=== PATIENT | male | born 1985 ===

== ENCOUNTER 2019-04-10 11:41 | Emergency (ER) | payer SELFPAY ==
[2019-04-11] MEDS ORDERED: NA CHLORIDE 0.9% 1,000 ML ONE (00:27)
[2019-04-11 00:30] LABS: Absolute Lymphocytes (CBC) 2.9 K/uL (0.7-4.9); Basophils % 0.9 % (0-1.3); Hematocrit 44.9 % (39.6-49.0); Lymphocytes % 34.7 % (15.3-44.8); MPV 8.5 fL (7.6-11.3); RBC Red Blood Cell Count 5.11 M/uL (4.33-5.43)
[2019-04-11 01:01] LABS: Urine Blood NEGATIVE (NEG); Urine Glucose NEGATIVE (NEG); Urine Protein NEGATIVE (NEG); Urine Specific Gravity 1.015 (1.005-1.030)
[2019-04-11 01:02] LABS: Urine Bacteria <20 /HPF (NONE SEEN); Urine Culture Reflex Order NOT NEEDED; Urine RBC NONE SEEN /HPF (NONE SEEN)
[2019-04-11 01:07] LABS: Barbiturates NEGATIVE (NEGATIVE); Benzodiazepines NEGATIVE (NEGATIVE); Cocaine NEGATIVE (NEGATIVE); METHAMPHETAM NEGATIVE (NEGATIVE); Methadone NEGATIVE (NEGATIVE); Opiates NEGATIVE (NEGATIVE); Phencyclidine NEGATIVE (NEGATIVE); THC Cannibis NEGATIVE (NEGATIVE)
[2019-04-11 01:13] LABS: ALT/SGPT 35 U/L (12-78); AST/SGOT 18 U/L (15-37); Albumin 3.8 g/dL (3.4-5.0); Alkaline Phosphatase 133 U/L (45-117); BUN Blood Urea Nitrogen 13 mg/dL (7-18); Bicarbonate 28 mmol/L (21-32); Bilirubin Direct 0.1 mg/dL (0-0.2); Bilirubin Total 0.5 mg/dL (0.2-1.0); Creatine Phosphokinase 90 U/L (39-308); Glucose Level 112 mg/dL (74-106); Potassium 3.6 mmol/L (3.5-5.1); Protein, Total 7.8 g/dL (6.4-8.2); Sodium Level 139 mmol/L (136-145); Troponin (Emerg Dept Use Only) < 0.02 ng/mL (0.0-0.045)
--- NOTE | 2019-04-11 02:42 | ER ---
Nurse's Notes [facility] Name: Dillon Wagoner Age: 34 yrs Sex: Male : 1985 Arrival Date: 04/10/2019 Time: 23:44 Bed 18 Private MD: Diagnosis: Weakness Presentation: 04/10 23:54 Presenting complaint: Patient states: Starting yesterday I began feeling weird. jb4 Jittery, shaky, and weak all over and had shortness of breath. It all comes and goes. Transition of care: patient was not received from another setting of care. Onset of symptoms was April 09, 2019. Risk Assessment: Do you want to hurt yourself or someone else? Patient reports no desire to harm self or others. Initial Sepsis Screen: Does the patient meet any 2 criteria? No. Patient's initial sepsis screen is negative. Does the patient have a suspected source of infection? No. Patient's initial sepsis screen is negative. Care prior to arrival: None. 23:54 Method Of Arrival: Ambulatory jb4 23:54 Acuity: KISHAN 3 jb4 Historical: - Allergies: 23:56 PENICILLINS; jb4 23:56 Hydrocodone-Acetaminophen; jb4 23:56 Iodine; jb4 - Home Meds: 23:56 None [Active]; jb4 - PMHx: 23:56 Seizures; jb4 - PSHx: 23:56 back; jb4 - Immunization history:: Adult Immunizations unknown. - Social history:: Smoking status: Patient uses tobacco products, smokes one pack cigarettes per day. Patient uses alcohol, occasionally. Patient/guardian denies using street drugs. - Ebola Screening: : No symptoms or risks identified at this time. Screenin/30 00:06 Abuse screen: Denies threats or abuse. Nutritional screening: No deficits noted. jb4 Tuberculosis screening: No symptoms or risk factors identified. Fall Risk None identified. Assessment: 04/10 23:58 General: Appears in no apparent distress. uncomfortable, Behavior is cooperative, jb4 anxious. Pain: Denies pain. Neuro: Level of Consciousness is awake, alert, obeys commands, Oriented to person, place, time, situation. Cardiovascular: Respiratory: Airway is patent Respiratory effort is even, unlabored, Respiratory pattern is regular, symmetrical. GI: Abdomen is flat, non-distended, Reports nausea. : No deficits noted. No signs and/or symptoms were reported regarding the genitourinary system. EENT: No deficits noted. No signs and/or symptoms were reported regarding the EENT system. Derm: Skin is intact, Skin is pink, warm \T\ dry. Musculoskeletal: Circulation, motion, and sensation intact. Range of motion: intact in all extremities. 04/11 01:09 Reassessment: Patient appears in no apparent distress at this time. Patient and/or jb4 family updated on plan of care and expected duration. Pain level reassessed. Patient is alert, oriented x 3, equal unlabored respirations, skin warm/dry/pink. 02:28 Reassessment: Patient appears in no apparent distress at this time. Patient and/or jb4 family updated on plan of care and expected duration. Pain level reassessed. Patient is alert, oriented x 3, equal unlabored respirations, skin warm/dry/pink. Pt verbalized understanding of d/c and follow up instructions. ambulated out of ED with steady gait. Vital Signs: 04/10 23:56 BP 144 / 88; Pulse 83; Resp 16; Temp 98.8(O); Pulse Ox 100% on R/A; Weight 90.72 kg jb4 (R); Height 5 ft. 5 in. (165.10 cm) (R); Pain 0/10; 04/11 01:00 BP 132 / 87; Pulse 66; Resp 16; Pulse Ox 100% on R/A; jb4 02:15 BP 114 / 85; Pulse 52; Resp 16; Pulse Ox 98% on R/A; 4 04/10 23:56 Body Mass Index 33.28 (90.72 kg, 165.10 cm) [facility] ED Course: 04/10 23:44 Patient arrived in ED. cl3 23:46 Santiago Lomas, ROB is Primary Nurse. jb4 23:55 Edison Khan MD is Attending Physician. gs 23:55 Triage completed. jb4 23:56 Arm band placed on right wrist. 4 04/11 00:06 Patient has correct armband on for positive identification. Bed in low position. Call [facility] light in reach. Side rails up X 1. Pulse ox on. NIBP on. 00:20 Initial lab(s) drawn, by me, sent to lab. Inserted saline lock: 20 gauge in right jb4 antecubital area, using aseptic technique. Blood collected. 02:29 No provider procedures requiring assistance completed. IV discontinued, intact, jb4 bleeding controlled, No redness/swelling at site. Pressure dressing applied. Administered Medications: 00:45 Drug: NS 0.9% 1000 ml Route: IV; Rate: 1 bolus; Site: right antecubital; jb4 01:30 Follow up: Response: No adverse reaction; IV Status: Completed infusion; IV Intake: jb4 1000ml Intake: 01:30 IV: 1000ml; Total: 1000ml. jb4 Outcome: 02:06 Discharge ordered by . 02:29 Discharged to home ambulatory, with family. jb4 02:29 Condition: stable 02:29 Discharge instructions given to patient, family, Instructed on discharge instructions, follow up and referral plans. Demonstrated understanding of instructions, follow-up care. 02:31 Patient left the ED. jb4 Signatures: Santiago Lomas RN RN jb4 Edison Khan MD MD gs Lewis, Finn cl3 Corrections: (The following items were deleted from the chart) 00:01 04/10 23:56 BP 144 / 88; Pulse 83bpm; Resp 16bpm; Pulse Ox 100% RA; Temp 98.8F Oral; jb4 Pain 0/10; jb4 04/11 02:30 04/10 23:58 GI: Abdomen is flat, non-distended, jb4 jb4
--- NOTE | 2019-04-11 02:45 | EDPHYS ---
Physician Documentation [facility] Name: Dillon Wagoner Age: 34 yrs Sex: Male : 1985 Arrival Date: 04/10/2019 Time: 23:44 Bed 18 Private MD: ED Physician Edison Khan HPI: 04/11 01:46 This 34 yrs old Male presents to ER via Ambulatory with complaints of General Weakness, gs Nausea. 01:46 The patient presents to the emergency department with nausea. Onset: The gs symptoms/episode began/occurred today. Possible causes: HEAT ILLNESS, DEHYDRATION. The symptoms are aggravated by nothing. The symptoms are alleviated by nothing. Associated signs and symptoms: Pertinent positives: nausea, WEAKNESS, Pertinent negatives: abdominal pain, constipation, GI bleeding, vomiting. Severity of symptoms: At their worst the symptoms were moderate in the emergency department the symptoms have improved moderately. The patient has experienced similar episodes in the past, a few times. Historical: - Allergies: 04/10 23:56 PENICILLINS; jb4 23:56 Hydrocodone-Acetaminophen; jb4 23:56 Iodine; jb4 - Home Meds: 23:56 None [Active]; jb4 - PMHx: 23:56 Seizures; jb4 - PSHx: 23:56 back; jb4 - Immunization history:: Adult Immunizations unknown. - Social history:: Smoking status: Patient uses tobacco products, smokes one pack cigarettes per day. Patient uses alcohol, occasionally. Patient/guardian denies using street drugs. - Ebola Screening: : No symptoms or risks identified at this time. ROS: 04/11 01:46 All other systems are negative. gs Exam: 01:46 Head/Face: Normocephalic, atraumatic. Eyes: Pupils equal round and reactive to light, gs extra-ocular motions intact. Lids and lashes normal. Conjunctiva and sclera are non-icteric and not injected. Cornea within normal limits. Periorbital areas with no swelling, redness, or edema. ENT: Nares patent. No nasal discharge, no septal abnormalities noted. Tympanic membranes are normal and external auditory canals are clear. Oropharynx with no redness, swelling, or masses, exudates, or evidence of obstruction, uvula midline. Mucous membranes moist. Neck: Trachea midline, no thyromegaly or masses palpated, and no cervical lymphadenopathy. Supple, full range of motion without nuchal rigidity, or vertebral point tenderness. No Meningismus. Chest/axilla: Normal chest wall appearance and motion. Nontender with no deformity. No lesions are appreciated. Cardiovascular: Regular rate and rhythm with a normal S1 and S2. No gallops, murmurs, or rubs. Normal PMI, no JVD. No pulse deficits. Respiratory: Lungs have equal breath sounds bilaterally, clear to auscultation and percussion. No rales, rhonchi or wheezes noted. No increased work of breathing, no retractions or nasal flaring. Abdomen/GI: Soft, non-tender, with normal bowel sounds. No distension or tympany. No guarding or rebound. No evidence of tenderness throughout. Back: No spinal tenderness. No costovertebral tenderness. Full range of motion. Skin: Warm, dry with normal turgor. Normal color with no rashes, no lesions, and no evidence of cellulitis. MS/ Extremity: Pulses equal, no cyanosis. Neurovascular intact. Full, normal range of motion. Neuro: Awake and alert, GCS 15, oriented to person, place, time, and situation. Cranial nerves II-XII grossly intact. Motor strength 5/5 in all extremities. Sensory grossly intact. Cerebellar exam normal. Normal gait. 01:46 Constitutional: The patient appears alert, awake. 01:46 ECG was reviewed by the Attending Physician. Vital Signs: 04/10 23:56 BP 144 / 88; Pulse 83; Resp 16; Temp 98.8(O); Pulse Ox 100% on R/A; Weight 90.72 kg jb4 (R); Height 5 ft. 5 in. (165.10 cm) (R); Pain 0/10; 04/11 01:00 BP 132 / 87; Pulse 66; Resp 16; Pulse Ox 100% on R/A; jb4 02:15 BP 114 / 85; Pulse 52; Resp 16; Pulse Ox 98% on R/A; jb4 04/10 23:56 Body Mass Index 33.28 (90.72 kg, 165.10 cm) jb4 MDM: 00:00 Patient medically screened. gs 01:46 Differential diagnosis: viral gastroenteritis, CAD, RHABDO, HEAT EXHAUSTION. Data gs reviewed: vital signs, nurses notes, lab test result(s), EKG. Response to treatment: the patient's symptoms have markedly improved after treatment, the patient's condition has returned to base line, and as a result, I will discharge patient. 02:07 Counseling: I had a detailed discussion with the patient and/or guardian regarding: the gs historical points, exam findings, and any diagnostic results supporting the discharge/admit diagnosis, the presence of at least one elevated blood pressure reading (>120/80) during this emergency department visit, lab results, radiology results, the need for outpatient follow up. 04/11 00:03 Order name: Basic Metabolic Panel 04/11 00:03 Order name: CBC with Diff 04/11 00:03 Order name: LFT's 04/11 00:03 Order name: Troponin (emerg Dept Use Only) 04/11 00:03 Order name: CPK 04/11 00:03 Order name: Urine Drug Screen 04/11 00:03 Order name: Urine Microscopic Only 04/11 00:55 Order name: Urine Dipstick--Ancillary (enter results) ar 04/11 00:56 Order name: CBC with Automated Diff; Complete Time: 01:45 EDMS 04/11 01:06 Order name: Urine Microscopic Only; Complete Time: 01:45 EDMS 04/11 01:06 Order name: Urine Dipstick-Ancillary; Complete Time: 01:45 EDMS 04/11 01:10 Order name: Urine Drug Screen; Complete Time: 01:45 EDMS 04/11 01:15 Order name: Basic Metabolic Panel; Complete Time: 01:45 EDMS 04/11 01:15 Order name: Liver (Hepatic) Function; Complete Time: 01:45 EDMS 04/11 00:03 Order name: EKG; Complete Time: 00:08 04/11 00:03 Order name: Cardiac monitoring; Complete Time: 00:52 04/11 00:03 Order name: EKG - Nurse/Tech; Complete Time: 00:52 04/11 00:03 Order name: IV Saline Lock; Complete Time: 00:53 04/11 00:03 Order name: Labs collected and sent; Complete Time: 00:53 04/11 00:03 Order name: O2 Per Protocol; Complete Time: 00:53 04/11 00:03 Order name: O2 Sat Monitoring; Complete Time: 00:53 04/11 00:03 Order name: Urine Dipstick-Ancillary (obtain specimen); Complete Time: 00:52 gs 04/11 01:15 Order name: Creatine Phosphokinase; Complete Time: :45 EDMS 04/11 01:16 Order name: Troponin (Emerg Dept Use Only); Complete Time: :45 EDMS EC:46 Rate is 53 beats/min. Rhythm is regular. NV interval is normal. QRS interval is normal. gs No Q waves. T waves are Normal. No ST changes noted. Clinical impression: Normal ECG. Interpreted by me. Administered Medications: 00:45 Drug: NS 0.9% 1000 ml Route: IV; Rate: 1 bolus; Site: right antecubital; jb4 01:30 Follow up: Response: No adverse reaction; IV Status: Completed infusion; IV Intake: jb4 1000ml Disposition: 04/11/19 02:06 Discharged to Home. Impression: Weakness. - Condition is Stable. - Discharge Instructions: Weakness, Fatigue, Managing Your Hypertension. - Medication Reconciliation Form, Thank You Letter, Antibiotic Education, Prescription Opioid Use form. - Follow up: Private Physician; When: 2 - 3 days; Reason: Re-evaluation by your physician. Signatures: Dispatcher [employer] Santiago Weston RN RN jb4 Edison Khan MD MD Corrections: (The following items were deleted from the chart) 02:31 02:06 04/11/2019 02:06 Discharged to Home. Impression: Weakness. Condition is Stable. jb4 Forms are Medication Reconciliation Form, Thank You Letter, Antibiotic Education, Prescription Opioid Use. Follow up: Private Physician; When: 2 - 3 days; Reason: Re-evaluation by your physician. gs
--- NOTE | 2019-04-13 08:13 | EKG ---
Test Date: 2019-04-11 Test Time: 00:31:10 Bulk Receiver: DADA MEASUREMENT RESULTS: Intervals: Rate: 53 IA: 144 QRSD: 94 QT: 394 QTc: 369 [place]: P: 23 IA: 144 QRS: -27 T: 29 INTERPRETIVE STATEMENTS: Sinus bradycardia Otherwise normal ECG No previous ECG available for comparison Electronically Signed On 04-13-19 08:07:50 CDT by Chano Carlson
== END 2019-04-11 02:31 | disposition home or self-care (01) ==
LOC: ER 23:41
DX: R53.1 Weakness (principal); F17.210 Nicotine dependence, cigarettes, uncomplicated; Z88.0 Allergy status to penicillin; Z88.6 Allergy status to analgesic agent; Z91.09 Other allergy status, other than to drugs and biological substances
CPT/HCPCS: 36415; 80048; 80076; 80307; 81003; 81015; 82550; 84484; 85025; 93005; 96360; 99284; J7030